=== PATIENT | female | born 1950 | race Caucasian/White ===

== ENCOUNTER → 2017-05-16 | Outpatient (CLI) | payer OTHER ==
[~2017-05-16] MED LIST: ASPIRIN81 M2 PO; CARDIZEM CD 18180 M3 PO; ELIQUIS5 MG PO; LOPRESSOR25 PO; NO HOME MEDS; NOHOMEMEDICATIONS
== END ==
LOC: RAD 13:38
DX: M47.896 Other spondylosis, lumbar region (principal); M53.3 Sacrococcygeal disorders, not elsewhere classified

== ENCOUNTER → 2017-05-20 | Outpatient (CLI) | payer OTHER ==
[~2017-05-20] VITALS: Ht 162.6 cm; Wt 86.2 kg
[~2017-05-20] MED LIST changes: +CALCIUM 500 +1 EAC5 PO; +FLAX SEED OIL1000 MG PO; +FLECAINIDE ACET50 M1 PO; +GLUCOSAMINE CH1 EAC2 PO
--- NOTE | ~2017-05-20 | S ---
[facility] [place] [address] SURGICAL PATH RPT PROCEDURE Name: KIMO MCDERMOTT Room #: REG [facility]..#: [id number] Admission: 05/20/17 Date of : 48 Discharge: Report #: [id number] Path Case #: [id number] PATHOLOGY REPORT COLLECTION DATE: 05/20/2017 RECEIVED DATE: 05/20/2017 SUBMITTING PHYS: Dr. Tomer Conley OTHER PHYS: Dr. James Zimmerman SPECIMEN(S) RECEIVED: A.Proximal ascending colon polyp * * * * * * * * * * * * FINAL DIAGNOSIS: Polyp, at proximal descending colon, endoscopic biopsy: - Tubular adenoma. - Negative for high grade dysplasia. ([facility]; 05/23/2017) PATHOLOGIST: Fabiola Burger M.D. REPORT ELECTRONICALLY SIGNED BY: Fabiola Burger M.D. DATE/TIME: 05/23/2017 17:24 * * * * * * * * * * * * GROSS PATHOLOGY: Received in formalin labeled "Kimo Mcdermott, polyp at proximal descending colon" is a specimen consisting of two portions of talbert-brown mucosa measuring 0.3 x 0.2 x 0.2 cm and 0.2 x 0.2 x 0.1 cm. The specimen is submitted in cassette A1. [place] CLINICAL HISTORY: History of polyps, hemorrhoid INITIAL CPT CODE(S): A; 53619 Professional services performed by [facility] at [facility] [address], [place] [address] Technical services performed by [facility] at [address] [place] [address], [address] [address] [facility] [address] [place] [address] SURGICAL PATH RPT PROCEDURE Name: KIMO MCDERMOTT Room #: REG [facility]#: [id number] Admission: 05/20/17 Date of : 48 Discharge: Report #: [id number] Path Case #: [id number] [address] PHONE: [phone] DIRECTOR: Heath Perdomo M.D. * * * END OF REPORT * * *
--- NOTE | ~2017-05-20 | P ---
[facility] [address] PROCEDURE REPORT Name: KIMO MCDERMOTT Room #: REG [facility]#: [id number] Admission: 05/20/17 Attend Phys: Tomer Conley MD Discharge: Date of : 48 Report #: [id number] THIS REPORT FOR: //name// CC: SUNNI CHAVEZ BRIEF HISTORY: The patient is a 67-year-old woman who has a history of colon adenomas. She also has a history of breast cancer and in September this year had hysterectomy for uterine cancer. She presents for high risk screening colonoscopy. PREOPERATIVE DIAGNOSES: 1. History of colon polyps. 2. Uterine cancer. 3. Breast cancer. POSTOPERATIVE DIAGNOSES: 1. Diminutive polyp, proximal ascending colon. 2. Small internal hemorrhoids. MEDICATIONS: Deep sedation with propofol per anesthesia. SPECIMEN: Polyp from the proximal ascending colon. ESTIMATED BLOOD LOSS: 3 mL. PROCEDURE: Colonoscopy to cecum and terminal ileum with biopsy. FINDINGS: Prior to propofol sedation, procedure of colonoscopy discussed with the patient as well as potential risks ____ its complications. She indicates she understands and desires to proceed. DESCRIPTION OF PROCEDURE: With the patient in left lateral decubitus position, digital examination was completed which revealed no abnormalities. Subsequently, the ProteoGenix video colonoscope was introduced into the rectum, advanced under direct vision to the cecum. Done with minimal difficulty. The cecum was identified by the ileocecal valve and the appendiceal orifice. I was able to visualize the distal segment of the terminal ileum, which was inspected and noted to be unremarkable. At that point, the scope was slowly withdrawn and careful circumferential views were obtained including retroflexing the scope in the ascending colon. Upon slow withdrawal of the scope, the prep was excellent. The mucosa was within normal limits, normal vascular pattern, normal light reflex. As we withdrew the scope, she was noted to have a diminutive polyp in proximal ascending colon, which was removed with cold biopsy forceps. Scope was [facility] [address] [place] [address] PROCEDURE REPORT Name: BALDEMARKIMO AUGUST Room #: REG [facility].#: [id number] Admission: 05/20/17 Attend Phys: Tomer Conley MD Discharge: Date of : 48 Report #: [id number] further withdrawn and no additional neoplastic lesions were seen. Examination of the remainder of the colon revealed normal mucosa. The scope was withdrawn in the rectum and upon retroflexion, small internal hemorrhoids were seen. Scope withdrawn, the patient tolerated the procedure well. CONDITION OF THE PATIENT UPON DISCHARGE: Following procedure, the patient drowsy, aroused, conversant. She will be discharged home when fully ambulatory. INSTRUCTIONS TO THE PATIENT AND FAMILY AT THE TIME OF DISCHARGE: We will follow up on the path of the polyps. However, at this point in time due to her history of colon adenomas, breast cancer and uterine cancer, we will have her return in 5 years for a followup colonoscopy. Last colonoscopy was about 4 years ago. Withdrawal time from the cecum was 15 minutes and 6 seconds. By: 0850 [id number] Tomer Conley MD /nt
== END ==
LOC: GI 06:59
DX: Z09 Encounter for follow-up examination after completed treatment for conditions other than malignant neoplasm (principal); K63.5 Polyp of colon; K64.8 Other hemorrhoids; I10 Essential (primary) hypertension; I49.9 Cardiac arrhythmia, unspecified; Z85.3 Personal history of malignant neoplasm of breast; Z85.42 Personal history of malignant neoplasm of other parts of uterus; Z88.0 Allergy status to penicillin; Z88.2 Allergy status to sulfonamides; Z88.8 Allergy status to other drugs, medicaments and biological substances; Z91.040 Latex allergy status; Z79.899 Other long term (current) drug therapy; Z87.891 Personal history of nicotine dependence; Z86.010 Personal history of colon polyps
CPT/HCPCS: 62110

== ENCOUNTER 2019-08-13 10:38 | Emergency (ER) | payer OTHER ==
[~2019-08-13] VITALS: Ht 160 cm; Wt 93.9 kg
[2019-08-13 11:43] LABS: MCHC 32.7 g/dL (28.0-37.0); WBC 3.7 thou/uL (4.0-11.0)
[2019-08-13 11:45] LABS: HEMATOCRIT 37.6 % (37.0-47.0); HEMOGLOBIN 12.3 gm/dL (12.0-15.0); MCH 30.9 pg (26.0-34.0); MCV 94.3 fL (80.0-100.0); PLATELET COUNT 155 thou/uL (150-400); RBC 3.98 mil/uL (4.20-5.00); RDW 13.5 % (10.5-14.5)
[2019-08-13 12:12] LABS: CREATININE 0.8 mg/dL (0.6-1.0); POTASSIUM 4.9 mmol/L (3.5-5.1)
[2019-08-13 12:18] LABS: TOTAL BILIRUBIN 0.3 mg/dL (<0.1-1.0); TOTAL PROTEIN 6.3 g/dL (6.4-8.2)
[2019-08-13 12:36] LABS: ABSOLUTE NEUTROPHILS 2.6 thou/uL (1.4-8.2); PLATELET ESTIMATE NORMAL
[2019-08-13] MEDS ORDERED: ONDANSETRON HCL4 M2 PO (14:50)
[2019-08-13] MEDS ORDERED: DOXYCYCLINE 10100 MG PO (14:50)
[2019-08-13 14:54] VITALS: BP 132/72
== END 2019-08-13 14:54 | disposition home or self-care (01) ==
LOC: ER 10:38
PROVIDERS: Physician Assistant
DX: J11.1 Influenza due to unidentified influenza virus with other respiratory manifestations (principal); J18.9 Pneumonia, unspecified organism; I10 Essential (primary) hypertension; I48.91 Unspecified atrial fibrillation; Z90.710 Acquired absence of both cervix and uterus; Z88.1 Allergy status to other antibiotic agents; Z88.2 Allergy status to sulfonamides; Z88.0 Allergy status to penicillin; Z91.040 Latex allergy status

== ENCOUNTER 2020-07-23 19:03 | Emergency (ER) | payer OTHER ==
[~2020-07-23] VITALS: Ht 160 cm; Wt 87.5 kg
[~2020-07-23 19:03] MED LIST changes: +DOXYCYCLINE 10100 MG PO; +ONDANSETRON HCL4 M2 PO
[2020-07-23 19:43] LABS: ABSOLUTE NEUTROPHILS 6.5 thou/uL (1.4-8.2); BASOPHILS 0.3 % (0.0-2.0); EOSINOPHILS 0.1 % (0.0-3.0); HEMATOCRIT 39.4 % (37.0-47.0); HEMOGLOBIN 13.3 gm/dL (12.0-15.0); LYMPHOCYTES 7.7 % (24.0-44.0); MCH 32.9 pg (26.0-34.0); MCHC 33.7 g/dL (28.0-37.0); MCV 97.5 fL (80.0-100.0); MONOCYTES 8.1 % (1.0-8.0); PLATELET COUNT 211 thou/uL (150-400); POLYS 83.8 % (36.0-66.0); RBC 4.05 mil/uL (4.20-5.00); RDW 15.4 % (10.5-14.5); WBC 7.8 thou/uL (4.0-11.0)
[2020-07-23 19:50] LABS: ANION GAP 9 mmol/L (7-16); BUN 23 mg/dL (7-18); CALCIUM 9.5 mg/dL (8.5-10.1); CHLORIDE 103 mmol/L (98-107); CO2 28 mmol/L (21-32); CREATININE 0.9 mg/dL (0.6-1.0); GLUCOSE 131 mg/dL (74-106); POTASSIUM 3.7 mmol/L (3.5-5.1); SODIUM 140 mmol/L (136-145)
[2020-07-23 20:00] LABS: ALBUMIN 3.5 g/dL (3.4-5.0); LIPASE 65 U/L (73-393); SGOT 16 U/L (15-37); SGPT 19 U/L (30-65); TOTAL BILIRUBIN 0.8 mg/dL (0.2-1.0); TOTAL PROTEIN 7.2 g/dL (6.4-8.2); TROPONIN-I <0.06 ng/mL (<0.06)
[2020-07-23 20:51] LABS: URINE BILIRUBIN NEGATIVE (Negative); URINE BLOOD NEGATIVE (Negative); URINE CLARITY CLEAR; URINE COLOR YELLOW; URINE GLUCOSE-RANDOM* NEGATIVE (Negative); URINE KETONES NEGATIVE (Negative); URINE LEUKOCYTES-REFLEX NEGATIVE (Negative); URINE NITRITE-REFLEX NEGATIVE (Negative); URINE PROTEIN (DIPSTICK) NEGATIVE (Negative); URINE SPECIFIC GRAVITY >= 1.030 (1.005-1.035); URINE UROBILINOGEN 0.2 E.U./dl (0.2-1.0)
[2020-07-23 21:55] VITALS: BP 143/71
--- NOTE | 2020-07-24 07:21 | EKG ---
[facility] [place] [address] ELECTROCARDIOGRAM REPORT Name: KIMO MCDERMOTT [facility] [id number] Admission: 07/23/20 Attend Phys: Discharge: 07/23/20 Date of : 48 Report #: [id number] [facility] ED Test Date: 2020-07-23 Test Time: 19:57:43 Pat Name: KIMO MCDERMOTT Department: Room: Gender: F Extruder Operator Vertical: EDITH : 1950 Requested By: Bernard Huffman Order Number: [id number] MD: Inder Reina Measurements Intervals [place] Rate: 57 P: 9 MS: 211 QRS: -16 QRSD: 113 T: -14 QT: 440 QTc: 429 Interpretive Statements Sinus rhythm Abnormal R-wave progression, early transition Left ventricular hypertrophy Borderline T abnormalities, diffuse leads Baseline wander in lead(s) V1 Compared to ECG 06/10/2014 08:32:01 T-wave abnormality now present Electronically Signed On 07-24-2020 7:20:53 TELE RN by Inder Reina [email or web address] <ELECTRONICALLY SIGNED> By: Inder Reina MD, LOCATED WITHIN [facility] 07/24/20719 56 56 Inder Reina MD, LOCATED [facility] /EPI
== END 2020-07-23 22:02 | disposition home or self-care (01) ==
LOC: ER 19:03
PROVIDERS: Emergency Medicine
DX: R10.31 Right lower quadrant pain (principal); Z20.828 Contact with and (suspected) exposure to other viral communicable diseases; R11.2 Nausea with vomiting, unspecified; I48.91 Unspecified atrial fibrillation; I10 Essential (primary) hypertension; Z91.040 Latex allergy status; Z88.2 Allergy status to sulfonamides; Z88.1 Allergy status to other antibiotic agents; Z88.0 Allergy status to penicillin; Z90.49 Acquired absence of other specified parts of digestive tract; Z98.51 Tubal ligation status; Z90.710 Acquired absence of both cervix and uterus

== ENCOUNTER → 2021-01-15 | Outpatient (CLI) | payer OTHER ==
[~2021-01-15] VITALS: Ht 160 cm; Wt 78.9 kg
[~2021-01-15] MED LIST changes: +ALPRAZOLAM PO; -CALCIUM 500 +1 EAC5 PO; +CALCIUM500 MG PO; +CELEXA 20 MG TA20 MG PO; +CORDARONE PO; +GAS RELIEF80 MG PO; -LOPRESSOR25 PO; +LOPRESSOR50 PO; +METAMUCIL1 EAC1 PO; +MIRALAX119 GM PO; +PACERONE200 MG PO; +PROBIOTIC1 EAC7 PO; +PROTONIX40 M2 PO; +TAMSULOSIN HCL0.4 MG PO; +VITAMIN B12-FO1 EAC1 PO; +VITAMIN C500 M2 PO; +XANAX2 MG PO
[2021-01-15 14:23] VITALS: BP 131/80
--- NOTE | 2021-01-15 15:04 | NUR ---
Pain Clinic Assessment: 1. History of Osteoarthritis: Not Applicable Not Applicable History of Rheumatoid Arthritis: 2. Height: 5 ft. 3 in. 160.0 cm. Weight: 174.0 lb. oz. 78.926 kg. Patient's BMI: 30.8 3. Vital Signs: BP: 131/80 Pulse: 68 Resp: 14 Temp: 02 Sat: 98 ECG Mon: 4. Pain Intensity: 8 5. Fall Risk: Dizziness: N Needs help standing or walking: Y Fallen in the last 3 months: N Fall risk comments: 6. Patient on Blood Thinner: CARLQUIS 7. History of Hypertension: N 8. Opioid Therapy greater than 6 weeks: Opiate Contract Signed: 9. Risk Assessment Tool Provided: 0 LOW RISK 10. Functional Assessment Tool: 49/70 11. Recreational Drug Use: Never Drug Type: Tobacco Use: Former Smoker Tobacco Type: Amount or Packs/day: How Many Years: Alcohol Use: No Frequency: Quant:
== END ==
LOC: PAIN 11:07
PROVIDERS: ATTEND Anesthesiology Pain Medicine
DX: M46.1 Sacroiliitis, not elsewhere classified (principal); M54.5 Low back pain; M25.552 Pain in left hip; I48.91 Unspecified atrial fibrillation; Z87.891 Personal history of nicotine dependence; Z88.2 Allergy status to sulfonamides; Z88.0 Allergy status to penicillin; Z88.8 Allergy status to other drugs, medicaments and biological substances; Z91.040 Latex allergy status

== ENCOUNTER → 2021-01-19 | Outpatient (CLI) | payer OTHER ==
[~2021-01-19] VITALS: Ht 160 cm; Wt 79.8 kg
[2021-01-19 12:28] VITALS: BP 135/86
== END | disposition home or self-care (01) ==
LOC: PAIN 07:50
PROVIDERS: ATTEND Anesthesiology Pain Medicine
DX: M53.3 Sacrococcygeal disorders, not elsewhere classified (principal); G89.29 Other chronic pain; I48.91 Unspecified atrial fibrillation; Z98.890 Other specified postprocedural states; Z79.899 Other long term (current) drug therapy; Z87.891 Personal history of nicotine dependence; Z79.01 Long term (current) use of anticoagulants; Z88.0 Allergy status to penicillin; Z88.2 Allergy status to sulfonamides; Z91.040 Latex allergy status

== ENCOUNTER → 2021-02-12 | Outpatient (CLI) | payer OTHER ==
[~2021-02-12] VITALS: Ht 160 cm; Wt 75.4 kg
[2021-02-12 14:18] VITALS: BP 149/82
--- NOTE | 2021-02-12 14:33 | NUR ---
Pain Clinic Assessment: 1. History of Osteoarthritis: Not Applicable Not Applicable History of Rheumatoid Arthritis: Not Applicable 2. Height: 5 ft. 3 in. 160.0 cm. Weight: 166.2 lb. oz. 75.388 kg. Patient's BMI: 29.4 3. Vital Signs: BP: 149/82 Pulse: 66 Resp: 14 Temp: 02 Sat: 99 ECG Mon: 4. Pain Intensity: 5 5. Fall Risk: Dizziness: N Needs help standing or walking: Y Fallen in the last 3 months: N Fall risk comments: 6. Patient on Blood Thinner: CARLQUIS 7. History of Hypertension: N 8. Opioid Therapy greater than 6 weeks: Opiate Contract Signed: 9. Risk Assessment Tool Provided: 0 LOW RISK 10. Functional Assessment Tool: 49/70 11. Recreational Drug Use: Never Drug Type: Tobacco Use: Former Smoker Tobacco Type: Amount or Packs/day: How Many Years: Alcohol Use: No Frequency: Quant:
== END | disposition home or self-care (01) ==
LOC: PAIN 10:47
PROVIDERS: ATTEND Anesthesiology Pain Medicine
DX: M53.3 Sacrococcygeal disorders, not elsewhere classified (principal); C18.9 Malignant neoplasm of colon, unspecified; Z98.890 Other specified postprocedural states; Z79.899 Other long term (current) drug therapy; Z87.891 Personal history of nicotine dependence; Z79.01 Long term (current) use of anticoagulants; Z91.040 Latex allergy status; Z88.2 Allergy status to sulfonamides; Z88.0 Allergy status to penicillin